=== PATIENT | female | born 1940 | race Caucasian/White ===

== ENCOUNTER 2020-08-05 12:59 | Emergency (ER) | payer MEDICARE, OTHER ==
--- NOTE | 2020-08-05 13:18 | EDM.PDOC ---
ED HPI GENERAL MEDICAL PROBLEM - General Chief Complaint: Neurological Problem Stated Complaint: COVID POSITIVE VIA [facility] Time Seen by Provider: 08/05/20 13:10 Source of Information: Reports: Patient, RN Notes Reviewed History Limitations: Reports: No Limitations - History of Present Illness INITIAL COMMENTS - FREE TEXT/NARRATIVE: 80-year-old female presents emergency department today via EMS services for change in mental status jail states that around 10:00 this morning became very agitated combative would no longer follow commands was able to care for herself before now she cannot. She is very combative at this time refuses to answer questions states she just wants to go home does not want any care she does have a bruise on her head suspicious for prior head injury - Related Data Allergies Allergy/AdvReac Type Severity Reaction Status Date / Time aspirin Allergy Other Verified 08/05/20 13:09 codeine Allergy Other Verified 08/05/20 13:09 doxepin [From Silenor] Allergy Other Verified 08/05/20 13:09 gabapentin Allergy Other Verified 08/05/20 13:09 latex Allergy Other Verified 08/05/20 13:09 linagliptin Allergy Other Verified 08/05/20 13:09 metformin Allergy Other Verified 08/05/20 13:09 metolazone Allergy Other Verified 08/05/20 13:09 Penicillins Allergy Other Verified 08/05/20 13:09 propoxyphene Allergy Other Verified 08/05/20 13:09 Home Meds: Home Meds Calcium Carb/Vitamin D3/Vit K1 [Calcium + D Soft Chewable Tab] 1 tab PO DAILY 08/05/20 [History] Cholecalciferol (Vitamin D3) [Vitamin D] 1 tab PO DAILY 08/05/20 [History] ClonazePAM [KlonoPIN] 0.5 mg PO BEDTIME 08/05/20 [History] Cyanocobalamin (Vitamin B-12) [Cyanocobalamin Injection] 1 injection IM ASDIRECTED 08/05/20 [History] Escitalopram Oxalate [Lexapro] 10 mg PO DAILY 08/05/20 [History] Escitalopram Oxalate [Lexapro] 20 mg PO DAILY 08/05/20 [History] Fluticasone Propionate [Flonase] 1 spray MIRIAM DAILY 08/05/20 [History] Furosemide [Lasix] 20 mg PO DAILY 08/05/20 [History] Insulin Glarg,Human.Rec.Analog [Lantus Solostar] 10 unit SUBCUT DAILY 08/05/20 [History] Levothyroxine Sodium [Levoxyl] 50 mcg PO DAILY 08/05/20 [History] Magnesium Oxide [Magnesium] 400 mg PO DAILY 08/05/20 [History] Olopatadine [Pataday 0.2% Ophth Soln] 1 drop EYEBOTH DAILY 08/05/20 [History] Pantoprazole [ProTONIX] 40 mg PO DAILY 08/05/20 [History] Psyllium [Metamucil] 1 gm PO DAILY 08/05/20 [History] Sucralfate 1 gm PO QID 08/05/20 [History] Warfarin [Coumadin] 0.5 mg PO ASDIRECTED 08/05/20 [History] Warfarin [Coumadin] 1 mg PO ASDIRECTED 08/05/20 [History] atorvaSTATin [Lipitor] 20 mg PO BEDTIME 08/05/20 [History] busPIRone [Buspar] 15 mg PO TID 08/05/20 [History] Social & Family History - Tobacco Use Tobacco Use Status *Q: Never Tobacco User ED ROS GENERAL - Review of Systems Review Of Systems: Unable To Obtain Reason Not Obtained: Combative and uncooperative ED EXAM, NEURO - Physical Exam Exam: See Below Text/Narrative:: Patient has refused any exam she does have a bruise frontal aspect right side he was allowed to auscultate the chest clear to auscultation regular rhythm Course - Vital Signs Last Recorded V/S: Last Vital Signs Temp 96.0 F L 08/05/20 14:12 Pulse 64 08/05/20 14:12 Resp 16 08/05/20 14:12 BP 154/70 H 08/05/20 14:12 Pulse Ox 96 08/05/20 14:12 - Orders/Labs/Meds Orders: Active Orders 24 hr Category Date Time Status CULTURE URINE [RM] Urgent Lab 08/05/20 16:40 Received Labs: Laboratory Tests 08/05/20 08/05/20 08/05/20 Range/Units 13:53 13:53 13:53 WBC 9.5 (4.5-11.0) K/uL RBC 4.12 (3.30-5.50) M/uL Hgb 12.7 (12.0-15.0) g/dL Hct 38.9 (36.0-48.0) % MCV 94 (80-98) fL MCH 31 (27-31) pg MCHC 33 (32-36) % Plt Count 242 (150-400) K/uL Neut % (Auto) 80 H (36-66) % Lymph % (Auto) 9 L (24-44) % [place] % (Auto) 11 H (2-6) % Eos % (Auto) 1 L (2-4) % Baso % (Auto) 0 (0-1) % PT 16.2 H (9.5-12.0) sec INR 1.50 H (0.80-1.20) Sodium 139 L (140-148) mmol/L Potassium 4.0 (3.6-5.2) mmol/L Chloride 100 (100-108) mmol/L Carbon Dioxide 33 H (21-32) mmol/L Anion Gap 10.0 (5.0-14.0) mmol/L BUN 20 H (7-18) mg/dL Creatinine 1.0 (0.6-1.0) mg/dL Est Cr Clr Drug Dosing TNP Estimated GFR (MDRD) 53 L (>60) Glucose 105 (74-106) mg/dL Lactic Acid (0.4-2.0) mmol/L Calcium 8.8 (8.5-10.1) mg/dL Total Bilirubin 1.0 (0.2-1.0) mg/dL AST 25 (15-37) U/L ALT 28 (12-78) U/L Alkaline Phosphatase 62 (46-116) U/L Troponin I 0.019 (0.000-0.056) ng/mL Total Protein 5.5 L (6.4-8.2) g/dL Albumin 2.5 L (3.4-5.0) g/dL Globulin 3.0 (2.3-3.5) g/dL Albumin/Globulin Ratio 0.8 L (1.2-2.2) Urine Color (YELLOW) Urine Appearance (CLEAR) Urine pH (5.0-8.0) Ur Specific Likely (1.008-1.030) Urine Protein (NEGATIVE) mg/dL Urine Glucose (UA) (NEGATIVE) mg/dL Urine Ketones (NEGATIVE) mg/dL Urine Occult Blood (NEGATIVE) Urine Nitrite (NEGATIVE) Urine Bilirubin (NEGATIVE) Urine Urobilinogen (0.2-1.0) EU/dL Ur Leukocyte Esterase (NEGATIVE) Urine RBC (0-5) Urine WBC (0-5) Ur Epithelial Cells Amorphous Sediment Urine Bacteria Urine Mucus 08/05/20 08/05/20 Range/Units 13:53 16:33 WBC (4.5-11.0) K/uL RBC (3.30-5.50) M/uL Hgb (12.0-15.0) g/dL Hct (36.0-48.0) % MCV (80-98) fL MCH (27-31) pg MCHC (32-36) % Plt Count (150-400) K/uL Neut % (Auto) (36-66) % Lymph % (Auto) (24-44) % [place] % (Auto) (2-6) % Eos % (Auto) (2-4) % Baso % (Auto) (0-1) % PT (9.5-12.0) sec INR (0.80-1.20) Sodium (140-148) mmol/L Potassium (3.6-5.2) mmol/L Chloride (100-108) mmol/L Carbon Dioxide (21-32) mmol/L Anion Gap (5.0-14.0) mmol/L BUN (7-18) mg/dL Creatinine (0.6-1.0) mg/dL Est Cr Clr Drug Dosing Estimated GFR (MDRD) (>60) Glucose (74-106) mg/dL Lactic Acid 1.0 (0.4-2.0) mmol/L Calcium (8.5-10.1) mg/dL Total Bilirubin (0.2-1.0) mg/dL AST (15-37) U/L ALT (12-78) U/L Alkaline Phosphatase (46-116) U/L Troponin I (0.000-0.056) ng/mL Total Protein (6.4-8.2) g/dL Albumin (3.4-5.0) g/dL Globulin (2.3-3.5) g/dL Albumin/Globulin Ratio (1.2-2.2) Urine Color Yellow (YELLOW) Urine Appearance Cloudy A (CLEAR) Urine pH 8.5 H (5.0-8.0) Ur Specific Likely 1.015 (1.008-1.030) Urine Protein 100 H (NEGATIVE) mg/dL Urine Glucose (UA) Negative (NEGATIVE) mg/dL Urine Ketones Negative (NEGATIVE) mg/dL Urine Occult Blood Trace-intact H (NEGATIVE) Urine Nitrite Positive H (NEGATIVE) Urine Bilirubin Negative (NEGATIVE) Urine Urobilinogen 0.2 (0.2-1.0) EU/dL Ur Leukocyte Esterase Large H (NEGATIVE) Urine RBC 20-30 H (0-5) Urine WBC Packed H (0-5) Ur Epithelial Cells Not seen Amorphous Sediment Not seen Urine Bacteria Many Urine Mucus Not seen Meds: Medications Discontinued Medications Generic Name Dose Route Start Last Admin Trade Name Freq PRN Reason Stop Dose Admin Ceftriaxone Sodium 1 gm/ 0 gm 08/05/20 17:04 Lidocaine HCl 2.1 ml IM 08/05/20 17:05 ONETIME ONE Departure - Departure Time of Disposition: 17:18 Disposition: DC/Tfer to [facility] Condition: Fair Clinical Impression: Urinary tract infection Qualifiers: Urinary tract infection type: acute cystitis Hematuria presence: with hematuria Qualified Code(s): N30.01 - Acute cystitis with hematuria - Discharge Information Instructions: Urinary Tract Infection, Adult Referrals: Kirit Smith MD [Primary Care Provider] - Forms: ED Department Discharge Additional Instructions: Take full course of antibiotics, please followup with your primary care provider in 3-5 days if not better, please call return to the emergency department with worsening of symptoms. Sepsis Event Note (ED) - Focused Exam Vital Signs: Vital Signs Temp Pulse Resp BP Pulse Ox 08/05/20 14:12 96.0 F L 64 16 154/70 H 96 - My Orders Last 24 Hours: My Active Orders 08/05/20 16:40 CULTURE URINE [RM] Urgent - Assessment/Plan Last 24 Hours: My Active Orders 08/05/20 16:40 CULTURE URINE [RM] Urgent Plan: Assessment Acuity = acute Site and laterality = urinary tract infection Etiology = bacterial cause Manifestations = change in mental status Location of injury = Home Lab values = CBC CMP unremarkable INRs 1.5 lactic acid normal 1.0 urinalysis reveals large leukocyte Estrace positive for nitrates 20-30 RBCs consistent hematuria packed WBCs consistent with pyuria cultures pending Plan She was given 1 g Rocephin IM in the emergency department prescription written for Bactrim DS 1 tab p.o. twice daily x7days she will be [facility] This note was dictated using [employer] voice recognition software please call with any questions on syntax or grammar.
--- NOTE | 2020-08-05 15:06 | CRLCT ---
INDICATION: Altered mental status. TECHNIQUE: Head CT without contrast. COMPARISON: None FINDINGS: CSF spaces: Prominence of the ventricles and the sulci likely due to age related volume loss. Brain parenchyma: Periventricular and subcortical white matter hypoattenuation is non specific but likely due to mild chronic small vessel ischemic changes. No sign of mass, hemorrhage, or midline shift. Skull base and calvarium: The visualized paranasal sinuses and mastoid air cells demonstrate no acute or significant findings. The visualized orbits are grossly unremarkable. No skull fractures. IMPRESSION: No acute intracranial abnormality. Please note that all CT scans at this facility use dose modulation, iterative reconstruction, and/or weight-based dosing when appropriate to reduce radiation dose to as low as reasonably achievable. Dictated by Prince Maloney MD @ Aug 05 2020 3:01PM Signed by Dr. Prince Maloney @ Aug 05 2020 3:03PM
[2020-08-05] MEDS ORDERED: cefTRIAXone 1 GM, Lidocaine 1% 2.1 ML IM ONE ×2 (17:04)
== END 2020-08-05 18:32 ==
LOC: JP.ED 12:59
DX: N30.01 Acute cystitis with hematuria (principal); Z88.6 Allergy status to analgesic agent; Z88.5 Allergy status to narcotic agent; Z91.040 Latex allergy status; Z88.8 Allergy status to other drugs, medicaments and biological substances; Z88.0 Allergy status to penicillin; Z79.4 Long term (current) use of insulin; Z79.899 Other long term (current) drug therapy
CPT/HCPCS: 36415; 70450; 80053; 81001; 83605; 84484; 85025; 85610; 87086; 87088; 87186; 96372; 99285; J0696; J2001